=== PATIENT | female | born 1960 | race Caucasian/White ===

== ENCOUNTER 2017-12-07 09:15 | Day surgery (SDC) | payer BC ==
[~2017-12-07] VITALS: Ht 170.2 cm; Wt 107.7 kg
[2017-12-07] VITALS (9 sets, daily range): BP systolic 82–103; BP diastolic 54–77; PULSE 73–151; TEMP 97.3
[2017-12-07] MEDS ORDERED: MULTI VITAMINS1 TAB PO (10:03)
[2017-12-07 10:04] LABS: HEMATOCRIT 35.5 % (37.0-47.0); HEMOGLOBIN 11.6 g/dl (12.5-16.0); MEAN CELL VOLUME 84 fl (80.0-100.0); MEAN CORPUSCULAR HEMOGLOBIN 27 pg (27.0-31.0); MEAN CORPUSCULAR HGB CONC 33 g/dl (33.0-37.0); MEAN PLATELET VOLUME 10.3 fl (7.4-10.4); PLATELET COUNT 223 K/mm3 (130-400); RED BLOOD COUNT 4.24 M/mm3 (4.10-5.30); REDCELL DISTRIBUTION WIDTH-CV 15.2 % (11.5-14.5)
[2017-12-07] MEDS ORDERED: CALCIUM D PO (10:04)
[2017-12-07] MEDS ORDERED: FISH OIL CONCEN1 SG2 PO (10:05)
[2017-12-07] MEDS ORDERED: VITAMINC1000TA PO (10:05)
[2017-12-07] MEDS ORDERED: LEVOXYL0.125 MG PO (10:06)
[2017-12-07] MEDS ORDERED: ESTRACE 1MG1 MG/TAB PO (10:06)
[2017-12-07] MEDS ORDERED: B COMPLEX & B121 TAB PO (10:06)
[2017-12-07] MEDS ORDERED: ELIQUIS 5MG PO (10:07)
[2017-12-07] MEDS ORDERED: VALTREX 50500 MG/TAB PO (10:07)
[2017-12-07] MEDS ORDERED: TOPROL XL 50MG50 MG PO (10:07)
[2017-12-07] MEDS ORDERED: CEPHALEXIN500 M1 PO (10:10)
[2017-12-07 10:12] LABS: CALCIUM 8.7 mg/dL (8.4-10.2); CREATININE, serum 0.82 mg/dL (0.52-1.25); POTASSIUM 4.7 mmol/L (3.4-5.0)
[2017-12-07 10:16] LABS: INR 1.2 (0.8-3.0); PROTHROMBIN TIME 13.9 SECONDS (9.7-12.8)
[2017-12-07] MEDS ORDERED: MULTAQ400 MG PO (11:46)
== END 2017-12-07 14:23 | disposition home or self-care (01) ==
LOC: COL.CAR 09:15
PROVIDERS: Internal Medicine Cardiovascular Disease
DX: I48.92 Unspecified atrial flutter (principal); I08.1 Rheumatic disorders of both mitral and tricuspid valves; Z79.01 Long term (current) use of anticoagulants; E03.9 Hypothyroidism, unspecified; Z98.84 Bariatric surgery status; Z88.2 Allergy status to sulfonamides
CPT/HCPCS: J2250; J3010

== ENCOUNTER 2018-06-29 11:17 | Day surgery (SDC) | payer BC ==
[~2018-06-29] VITALS: Ht 170.2 cm; Wt 107.9 kg
[2018-06-29] VITALS (10 sets, daily range): BP systolic 110–127; BP diastolic 58–69; PULSE 55–68; TEMP 97.7
[~2018-06-29 11:17] MED LIST: B COMPLEX & B121 TAB PO; CALCIUM D PO; CEPHALEXIN500 M1 PO; ELIQUIS 5MG PO; ESTRACE 1MG1 MG/TAB PO; FISH OIL CONCEN1 SG2 PO; LEVOXYL0.125 MG PO; MULTAQ400 MG PO; MULTI VITAMINS1 TAB PO; TOPROL XL 50MG50 MG PO; VALTREX 50500 MG/TAB PO; VITAMINC1000TA PO
[2018-06-29] MEDS ORDERED: CALCIUM 600/VIT1 CAP PO (11:43)
[2018-06-29 12:21] LABS: INR 1.1 (0.8-3.0); PROTHROMBIN TIME 12.3 SECONDS (9.7-12.8)
[2018-06-29 12:24] LABS: CALCIUM 9.1 mg/dL (8.4-10.2); CREATININE, serum 0.81 mg/dL (0.52-1.25); POTASSIUM 4.5 mmol/L (3.4-5.0)
[2018-06-29 12:26] LABS: HEMOGLOBIN 13.2 g/dl (12.5-16.0); MEAN CELL VOLUME 86 fl (80.0-100.0); MEAN CORPUSCULAR HEMOGLOBIN 28 pg (27.0-31.0); MEAN CORPUSCULAR HGB CONC 32 g/dl (33.0-37.0); MEAN PLATELET VOLUME 11.4 fl (7.4-10.4); PLATELET COUNT 232 K/mm3 (130-400); RED BLOOD COUNT 4.79 M/mm3 (4.10-5.30); REDCELL DISTRIBUTION WIDTH-CV 15.6 % (11.5-14.5)
== END 2018-06-29 21:00 | disposition home or self-care (01) ==
LOC: COL.CAR 11:17
PROVIDERS: Internal Medicine Cardiovascular Disease
DX: I25.10 Atherosclerotic heart disease of native coronary artery without angina pectoris (principal); R94.39 Abnormal result of other cardiovascular function study; I48.92 Unspecified atrial flutter; Z79.01 Long term (current) use of anticoagulants; Z88.2 Allergy status to sulfonamides; Z88.1 Allergy status to other antibiotic agents; Z82.49 Family history of ischemic heart disease and other diseases of the circulatory system
CPT/HCPCS: C1760; C1894; J1644; J2250; J3010; Q9967

== ENCOUNTER → 2022-12-07 | Outpatient (CLI) | payer BC ==
[~2022-12-07] MED LIST changes: +CALCIUM 600/VIT1 CAP PO
== END ==
LOC: COL.RAD 13:31
DX: M79.672 Pain in left foot (principal)
CPT/HCPCS: J3301; Q9967